=== PATIENT | female | born 1950 | race Caucasian/White ===

== ENCOUNTER → 2017-05-26 | Day surgery (SDC) | payer MEDICARE, BC ==
[~2017-05-26] MED LIST: Lactated Ringers 1,000 ML IV SCH; Propofol 200 MG/20 ML SDV IV ONE
[2017-05-26 09:47] VITALS: BP 113/61
--- NOTE | 2017-05-26 10:09 | OR ---
DATE OF OPERATION: 05/26/2017 PREOPERATIVE DIAGNOSIS: 1. SCREENING COLONOSCOPY. 2. DIARRHEA SECONDARY TO RADIATION. POSTOPERATIVE DIAGNOSIS: 1. SCREENING COLONOSCOPY. 2. DIARRHEA SECONDARY TO RADIATION. SURGEON: Russel Guillen MD PROCEDURE: FULL-LENGTH COLONOSCOPY WITH RANDOM BIOPSIES X4, POLYP REMOVAL X1. 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 COMPLICATIONS: None. SPECIMEN: 1. Random colon biopsies x4. 2. Hyperplastic polyp, proximal rectal vault. RECOMMENDATIONS: Medical followup with Sherry Thomas. INDICATIONS: The patient was in for a physical. She never had a prior colonoscopy. She is also undergoing radiation for a vaginal mass and has been having some diarrhea. Sherry Thomas recommended a colonoscopy. DESCRIPTION OF PROCEDURE: The patient was prepped and draped, placed in the left lateral decubitus position. A lubricated Olympus colonoscope was inserted and easily advanced to the cecum. Direct visualization of the ileocecal valve and appendiceal orifice was accomplished. The bowel prep was excellent. Throughout the length of the colon, I could find no worrisome masses, polyps, ulcerations, or bleeding sites. No vascular abnormalities or obvious signs of colitis. There were no diverticula. The patient did have 1 small hyperplastic- appearing polyp in the proximal rectal vault removed with a cold forceps biopsy x3 in its entirety. Resolution of bleeding was spontaneous. Retroflexion of the scope in the rectum showed no anal lesions. Because of the patient's persistent diarrhea, I did do random colon biopsies of the ascending colon, transverse, sigmoid, and rectosigmoid area, but no gross abnormalities could be seen. Air was suctioned. Scope was removed without complication. FRED/EDIL /[id number]
== END ==
LOC: CC.SDS 08:12
PROVIDERS: ATTEND Family Medicine
DX: Z12.11 Encounter for screening for malignant neoplasm of colon (principal); K62.1 Rectal polyp; F41.9 Anxiety disorder, unspecified; I10 Essential (primary) hypertension; E78.5 Hyperlipidemia, unspecified; E04.1 Nontoxic single thyroid nodule; K21.9 Gastro-esophageal reflux disease without esophagitis; Z79.899 Other long term (current) drug therapy; Z98.51 Tubal ligation status; Z88.8 Allergy status to other drugs, medicaments and biological substances; Z91.041 Radiographic dye allergy status; F17.210 Nicotine dependence, cigarettes, uncomplicated
CPT/HCPCS: 45380; J2704; J7120; 00810; 88305

== ENCOUNTER 2019-04-07 20:11 | Emergency (ER) | payer MEDICARE, BC ==
[2019-04-07] MEDS ORDERED: Diphtheria,Pertussis(Acell),Tetanus Vaccine 0.5 ML Syringe IM ONE (20:13)
[2019-04-07] MEDS ORDERED: Lidocaine 1% 20 ML MDV INJECT ONE (20:14)
[2019-04-07] MEDS ORDERED: Bupivacaine 0.25% 10 ML SDV INJECT ONE (20:14)
[2019-04-07 20:16] VITALS: BP 172/94; PULSE 61
--- NOTE | 2019-04-07 20:18 | EDM.PDOC ---
ED HPI GENERAL MEDICAL PROBLEM - General Chief Complaint: Laceration Stated Complaint: R) finger laceration Time Seen by Provider: 04/07/19 20:13 Source of Information: Reports: Patient History Limitations: Reports: No Limitations - History of Present Illness INITIAL COMMENTS - FREE TEXT/NARRATIVE: This patient is a 68 year old female that presents to the ER. Patient reports that she was washing dishes in the sink and glass broke cutting her right 2nd finger. 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 Body Image: 1 - laceration Severity: Mild Improves with: Reports: None Worsens with: Reports: None Right Finger-Index Pain Score (Numeric/FACES): 2 - Related Data Allergies Allergy/AdvReac Type Severity Reaction Status Date / Time codeine Allergy Itching Verified 04/07/19 20:22 Iodinated Contrast Media Allergy Other Verified 04/07/19 20:22 venlafaxine [From Effexor] Allergy Nausea Verified 04/07/19 20:22 Home Meds: Home Meds Ibuprofen [Advil] 1 tab PO Q4HR PRN 08/06/14 [History] Lisinopril 10 mg PO DAILY 08/06/14 [History] Scopolamine [Transderm-Scop] 1 patch TRDERM Q72H PRN 08/06/14 [History] Temazepam 30 mg PO BEDTIME 08/06/14 [History] ALPRAZolam [Alprazolam] 2.5 - 5 mg PO Q6HR PRN 05/25/17 [History] Multivitamin with Minerals [Hair, Skin and Nails] 1 tab PO DAILY 05/25/17 [ History] ED ROS GENERAL - Review of Systems Review Of Systems: See Below Musculoskeletal: Reports: No Symptoms. Denies: Hand Pain, Joint Pain, Joint Swelling Skin: Reports: Wound (laceration right 2nd finger) Neurological: Reports: No Symptoms. Denies: Numbness, Tingling, Weakness Psychiatric: Reports: Anxiety ED EXAM, SKIN/RASH Exam: See Below Exam Limited By: No Limitations General Appearance: Alert, WD/WN, No Apparent Distress Respiratory/Chest: No Respiratory Distress Cardiovascular: Normal Peripheral Pulses Peripheral Pulses: 2+: Radial (L), Radial (R) Extremities: Normal Range of Motion, Non-Tender, No Pedal Edema, Normal Capillary Refill, Other (Sensory/motor function intact. neurovascular intact. pulses ) Neurological: Alert (Sensory/motor function intact. neurovascular intact. pulses +2, cap refill < 2 sec. no pain with flexion or extension or pain back into the hand.), Oriented Psychiatric: Anxious Skin: Warm, Dry, Normal Color, No Rash, Wound/Incision Location, Skin: Upper Extremity, Right (right 2nd digit proximal finger laceration. ) ED SKIN PROCEDURES - Laceration/Wound Repair Right Digit - 2nd (Index) Appearance: Subcutaneous, Irregular, Mildly Contaminated Distal NVT: Neuro & Vascular Intact, Other (Flexor tendon small horizontal laceration. Partial. ) Anesthetic Type: Digital Local Anesthesia - Lidocaine (Xylocaine): 1% Plain Local Anesthesia - Bupivicaine (Marcaine): 0.25% Plain Local Anesthetic Volume: 2cc Skin Prep: Chlorhexidine (Hibiciens) Saline Irrigation (cc's): 50 Exploration/Debridement/Repair: Wound Explored, In a Bloodless Field, Explored to Base, Moderate Debridement, No Foreign Material Found, Wound Margins Revised , Multiple Flaps Aligned Closed with: Sutures Lac/Wound length In cm: 4 Suture Size: 5-0 # of Sutures: 10 Tetanus Status Addressed: Yes Course - Vital Signs Last Recorded V/S: Last Vital Signs Temp 97.9 F 04/07/19 20:12 Pulse 61 04/07/19 20:12 Resp 18 04/07/19 20:12 BP 172/94 H 04/07/19 20:12 Pulse Ox 100 04/07/19 20:12 - Orders/Labs/Meds Orders: Active Orders 24 hr Category Date Time Status Vaccines to be Administered [RC] PER UNIT ROUTINE Care 04/07/19 20:14 Active Fingers Second Digit Rt F6 [CR] Stat Exams 04/07/19 20:13 Taken Meds: Medications Discontinued Medications Generic Name Dose Route Start Last Admin Trade Name Freq PRN Reason Stop Dose Admin Bupivacaine HCl 10 ml 04/07/19 20:14 04/07/19 20:53 Sensorcaine-Mpf 0.25% INJECT 04/07/19 20:15 10 ml ONETIME ONE Administration Diphtheria/Tetanus/Acell Pertussis 0.5 ml 04/07/19 20:13 04/07/19 20:49 Adacel IM 04/07/19 20:14 0.5 ml .ONCE ONE Administration Lidocaine HCl 20 ml 04/07/19 20:14 04/07/19 20:53 Xylocaine 1% INJECT 04/07/19 20:15 20 ml ONETIME ONE Administration Neomycin/Polymyxin/Bacitracin 1 each 04/07/19 21:26 04/07/19 21:29 Triple Antibiotic Oint TOP 04/07/19 21:27 1 each ONETIME ONE Administration - Radiology Interpretation Free Text/Narrative:: Right 2nd finger xray: possible small FB. No fx, no dislocation. - Re-Assessments/Exams Free Text/Narrative Re-Assessment/Exam: 04/07/19 21:41 I called and spoke to Dr. Castellanos Hand surgeon at [facility]. He reports no surgery for partial tear of this flexor tendon. May refer to hand therapy if needed later for scarring. No need for abx. Will DC. Departure - Departure Time of Disposition: 21:44 Disposition: Home, Self-Care 01 Condition: Fair Clinical Impression: Laceration Flexor tendon laceration of finger with open wound Qualifiers: Encounter type: initial encounter Qualified Code(s): S56.129A - Laceration of flexor muscle, fascia and tendon of unspecified finger at forearm level, initial encounter - Discharge Information *PRESCRIPTION DRUG MONITORING PROGRAM REVIEWED*: Not Applicable *COPY OF PRESCRIPTION DRUG MONITORING REPORT IN PATIENT SERGIO: Not Applicable Instructions: Laceration Care, Adult, [id number], Stitches, Mary Carmen, or Adhesive Wound Closure, [id number] Referrals: Sherry Thomas PA-C [Primary Care Provider] - Forms: ED Department Discharge Additional Instructions: Followup with primary care provider in about 7 days for suture removal and evaluation Return to the ER for worsening of condition or any emergent concerns such as fever, vomiting, drainage Wash the wound gently twice a day with soap and water, rinse, gently pat dry. IbuProfen over the counter as needed for pain - My Orders Last 24 Hours: My Active Orders 04/07/19 20:13 Fingers Second Digit Rt F6 [CR] Stat 04/07/19 20:14 Vaccines to be Administered [RC] PER UNIT ROUTINE - Assessment/Plan Last 24 Hours: My Active Orders 04/07/19 20:13 Fingers Second Digit Rt F6 [CR] Stat 04/07/19 20:14 Vaccines to be Administered [RC] PER UNIT ROUTINE Plan: PLEASE SEE RN NOTE FOR PFSH
[2019-04-07] MEDS ORDERED: Bacitracin/Neomycin/Polymyxin B Oint 0.9 GM U/D Packet TOP ONE (21:26)
== END 2019-04-07 21:52 | disposition home or self-care (01) ==
LOC: CC.ED 20:11
DX: S56.121A Laceration of flexor muscle, fascia and tendon of right index finger at forearm level, initial encounter (principal); Z23 Encounter for immunization; Z88.5 Allergy status to narcotic agent; Z91.041 Radiographic dye allergy status; Z88.8 Allergy status to other drugs, medicaments and biological substances; Z79.899 Other long term (current) drug therapy
CPT/HCPCS: 12002; 73140; 90471; 90715; 99283; J2001; J3490

== ENCOUNTER 2020-12-05 10:22 | Emergency (ER) | payer MEDICARE, BC ==
--- NOTE | 2020-12-05 10:37 | EDM.PDOC ---
ED HPI GENERAL MEDICAL PROBLEM - General Chief Complaint: Genitourinary Problem Stated Complaint: Blood in urine Time Seen by Provider: 12/05/20 10:27 Source of Information: Reports: Patient History Limitations: Reports: No Limitations - History of Present Illness INITIAL COMMENTS - FREE TEXT/NARRATIVE: This patient is a 69 year old female that presents to the ER. Patient reports that on Monday she got a pelvic exam and pap done. She reports the next day having burning with urination and irritation. She reports then on and Monday that resolved. But, this morning she woke this morning with burning with urination, urge, and hematuria. She reports having a history of UTI before in the past and this feels exactly like that. Onset Date: 12/02/20 Location: Reports: Lower Extremity, Right Severity: Mild Improves with: Reports: None Worsens with: Reports: None Associated Symptoms: Reports: No Other Symptoms. Denies: Confusion, Chest Pain, Cough, cough w sputum, Diaphoresis, Fever/Chills, Headaches, Loss of Appetite, Malaise, Nausea/Vomiting, Rash, Seizure, Shortness of Breath, Syncope, Weakness - Related Data Allergies Allergy/AdvReac Type Severity Reaction Status Date / Time codeine Allergy Itching Verified 04/07/19 20:22 Iodinated Contrast Media Allergy Other Verified 04/07/19 20:22 venlafaxine [From Effexor] Allergy Nausea Verified 04/07/19 20:22 Home Meds: Home Meds Ibuprofen [Advil] 1 tab PO Q4HR PRN 08/06/14 [History] Lisinopril 10 mg PO DAILY 08/06/14 [History] Scopolamine [Transderm-Scop] 1 patch TRDERM Q72H PRN 08/06/14 [History] Temazepam 30 mg PO BEDTIME 08/06/14 [History] ALPRAZolam [Alprazolam] 2.5 - 5 mg PO Q6HR PRN 05/25/17 [History] Multivitamin with Minerals [Hair, Skin and Nails] 1 tab PO DAILY 05/25/17 [History] cephALEXin [Cephalexin] 500 mg PO BID 7 Days #14 capsule 12/05/20 [Rx] Past Medical History Cardiovascular History: Reports: Hypertension Oncologic (Cancer) History: Reports: Squamous Cell Carcinoma, Other (See Below) Other Oncologic History: vaginal - Past Surgical History GI Surgical History: Reports: Kendra Fundoplication Female Surgical History: Reports: Tubal Ligation Social & Family History - Family History Family Medical History: No Pertinent Family History - Caffeine Use Caffeine Use: Reports: Coffee ED ROS GENERAL - Review of Systems Review Of Systems: See Below Constitutional: Reports: No Symptoms HEENT: Reports: No Symptoms Respiratory: Reports: No Symptoms Cardiovascular: Reports: No Symptoms Endocrine: Reports: No Symptoms GI/Abdominal: Reports: No Symptoms. Denies: Abdominal Pain, Diarrhea, Nausea, Vomiting : Reports: Dysuria, Hematuria, Urgency. Denies: Flank Pain, Incontinence Musculoskeletal: Reports: No Symptoms Skin: Reports: No Symptoms Neurological: Reports: No Symptoms Psychiatric: Reports: No Symptoms Hematologic/Lymphatic: Reports: No Symptoms Immunologic: Reports: No Symptoms ED EXAM - Physical Exam Exam: See Below Exam Limited By: No Limitations General Appearance: Alert, WD/WN, No Apparent Distress Throat/Mouth: Normal Inspection Head: Atraumatic, Normocephalic Neck: Normal Inspection, Supple Respiratory/Chest: No Respiratory Distress, Lungs Clear, Normal Breath Sounds, No Accessory Muscle Use Cardiovascular: Normal Peripheral Pulses, Regular Rate, Rhythm, No Edema, No Gallop, No JVD, No Murmur, No Rub GI/Abdominal Exam: Soft, Non-Tender, No Organomegaly, No Distention, Pelvis Stable Back Exam: Normal Inspection. No: CVA Tenderness (L), CVA Tenderness (R) Extremities: Normal Inspection, Normal Range of Motion, Non-Tender, No Pedal Edema, Normal Capillary Refill Neurological: Alert, Oriented Psychiatric: Normal Affect, Normal Mood Skin Exam: Warm, Dry, Intact, Normal Color, No Rash Course - Orders/Labs/Meds Orders: Active Orders 24 hr Category Date Time Status CULTURE URINE [RM] Stat Lab 12/05/20 10:24 Received Labs: Laboratory Tests 12/05/20 Range/Units 10:24 Urine Color Dark yellow (YELLOW) Urine Appearance Cloudy (CLEAR) Urine pH 7.0 (4.5-8.0) Ur Specific Mcalister 1.025 H (1.003-1.020) Urine Protein >=300 H (NEGATIVE) mg/dL Urine Glucose (UA) Negative (NEGATIVE) mg/dL Urine Ketones Negative (NEGATIVE) mg/dL Urine Occult Blood Large H (NEGATIVE) Urine Nitrite Negative (NEGATIVE) Urine Bilirubin Negative (NEGATIVE) Urine Urobilinogen 0.2 (0.2-1.0) EU/dL Ur Leukocyte Esterase Moderate H (NEGATIVE) Urine RBC Packed H (0-5) /HPF Urine WBC 5-10 H (0-5) /HPF Urinalysis Comment Departure - Departure Time of Disposition: 10:47 Disposition: Home, Self-Care 01 Condition: Good Clinical Impression: UTI, Urinary tract infectious disease - Discharge Information *PRESCRIPTION DRUG MONITORING PROGRAM REVIEWED*: Not Applicable *COPY OF PRESCRIPTION DRUG MONITORING REPORT IN PATIENT SERGIO: Not Applicable Prescriptions: cephALEXin [Cephalexin] 500 mg PO BID 7 Days #14 capsule Instructions: Urinary Tract Infection, Adult, [id number] Forms: ED Department Discharge Additional Instructions: Followup with your primary care provider for recheck and urine culture report Return to the ER for worsening of condition or any emergent concerns such as vomiting, fever, confusion Increase fluids Cephalexin 500mg 1 pill twice a day for 7 days #14 no refill - My Orders Last 24 Hours: My Active Orders 12/05/20 10:24 CULTURE URINE [RM] Stat - Assessment/Plan Last 24 Hours: My Active Orders 12/05/20 10:24 CULTURE URINE [RM] Stat Plan: PLEASE SEE RN NOTE FOR PFSH
[2020-12-05 11:18] VITALS: BP 158/89; PULSE 65
== END 2020-12-05 10:55 | disposition home or self-care (01) ==
LOC: CC.ED 10:22
DX: N39.0 Urinary tract infection, site not specified (principal); I10 Essential (primary) hypertension; Z88.5 Allergy status to narcotic agent; Z91.041 Radiographic dye allergy status
CPT/HCPCS: 81001; 99283

== ENCOUNTER → 2021-08-27 | Day surgery (SDC) | payer MEDICARE, BC ==
[~2021-08-27] MED LIST changes: +Ketamine 200 MG/20 ML MDV ONE; +Midazolam 1 MG/ML 2 ML SDV ONE; -Propofol 200 MG/20 ML SDV IV ONE; +Propofol 200 MG/20 ML SDV ONE; +fentaNYL 100 MCG/2 ML SDV ONE
[2021-08-27 10:31] VITALS: BP 140/70; PULSE 54
== END ==
LOC: CC.SDS 09:01
PROVIDERS: ATTEND Family Medicine
DX: R19.5 Other fecal abnormalities (principal); K64.8 Other hemorrhoids; F41.9 Anxiety disorder, unspecified; I10 Essential (primary) hypertension; E78.5 Hyperlipidemia, unspecified; M85.80 Other specified disorders of bone density and structure, unspecified site; F17.210 Nicotine dependence, cigarettes, uncomplicated; N95.1 Menopausal and female climacteric states; K21.9 Gastro-esophageal reflux disease without esophagitis; Z88.8 Allergy status to other drugs, medicaments and biological substances; Z88.5 Allergy status to narcotic agent; Z79.899 Other long term (current) drug therapy; Z98.890 Other specified postprocedural states
CPT/HCPCS: J2250; J2704; J3010; J7120